=== PATIENT | female | born 1980 | race Two or more races ===

== ENCOUNTER 2016-02-15 14:15 | Emergency (ER) | payer OTHER ==
[2016-02-15 14:37] VITALS: TEMP 98; BMI 20.2
[2016-02-15 16:58] LABS: URINE APPEARANCE CLEAR; URINE BILIRUBIN NEGATIVE (NEGATIVE); URINE BLOOD NEGATIVE (NEGATIVE); URINE COLOR COLORLESS; URINE GLUCOSE (UA) NEGATIVE (NEGATIVE); URINE KETONE TRACE (NEGATIVE); URINE LEUK ESTERASE NEGATIVE (NEGATIVE); URINE NITRITE NEGATIVE (NEGATIVE); URINE PROTEIN NEGATIVE (NEGATIVE); URINE UROBILINOGEN NEGATIVE E.U./dl (0.2-1.0)
[2016-02-15] MEDS ORDERED: ONDANSETRON *ODT* 4 MG TABLET SL ONE (16:58)
--- NOTE | 2016-02-15 16:58 | PDOC ---
History of Present Illness - General History Source: Patient Exam Limitations: No Limitations - History of Present Illness Initial Comments: CHIEF COMPLAINT: 35 y/o afebrile female with no significant PMH c/o nausea and lightheaded since this morning. HISTORY OF PRESENT ILLNESS: She also admits to a sore throat. The patient denies fever, chills, body aches, cough, runny nose, v/d, CP, SOB, abd pain, back pain, hematuria, dysuria. She called her PCP but there were no appointments available. Vital signs on arrival are notable for pulse of 103. REVIEW OF SYSTEMS: GENERAL/CONSTITUTIONAL: No fever/chills. No weakness. No weight change. HEAD, EYES, EARS, NOSE AND THROAT: No change in vision. No ear pain or discharge. +sore throat. CARDIOVASCULAR: No chest pain or shortness of breath. RESPIRATORY: No cough, wheezing, or hemoptysis. GASTROINTESTINAL: +nausea. No vomiting, diarrhea, constipation, abd pain. GENITOURINARY: No dysuria, frequency, or change in urination. MUSCULOSKELETAL: No joint or muscle swelling or pain. No neck or back pain. SKIN: No rash or easy bruising. NEUROLOGIC: +lightheaded. No headache, vertigo, loss of consciousness, or loss of sensation. PSYCHIATRIC: No depression or anxiety. ENDOCRINE: No increased thirst. No abnormal weight change. HEMATOLOGIC/LYMPHATIC: No anemia, easy bleeding, or history of blood clots. ALLERGIC/IMMUNOLOGIC: No hives or skin allergy. No latex allergy. PHYSICAL EXAM: GENERAL: The patient is awake, alert, and fully oriented, in no acute distress. SHe is well appearing, ambulatory, in NAD or obvious discomfort. HEAD: Normal with no signs of trauma. ENT: Pupils equal, round and reactive to light, extraocular movements intact, sclera anicteric, conjunctiva clear. Neck supple. Minimal erythema to b/l tonsils and posterior pharynx. No tonsilar edema or exudate. LUNGS: Clear to auscultation bilaterally. Normal excursion. No respiratory distress or use of accessory muscles. CV: RRR, S1/S2, no MRG. Cap refill < 2 sec. ABDOMEN: Soft, non-distended, non-tender even to deep palpation, no hepatomegaly or splenomegaly, no masses. EXTREMITIES: Normal range of motion, no edema. NEUROLOGICAL: Normal speech, normal gait. CN II-XII grossly intact. PSYCH: Normal mood, normal affect. SKIN: Warm, dry, normal turgor, no rashes or lesions noted. <Jovita Roper - Last Filed: 02/15/16 18:36> <Julita Johnson - Last Filed: 02/22/16 07:39> - General Chief Complaint: Lightheaded Stated Complaint: HIGH BP, Time Seen by Provider: 02/15/16 16:36 Past History - Past Medical History Anemia: No Kidney Stones: No Liver Disease: No Psychiatric Problems: No Suicide Attempt (Hx): No - Surgical History Abdominal Surgery: Yes - Psycho/Social/Smoking Cessation Hx Anxiety: No Suicidal Ideation: No Smoking Status: No Smoking History: Never smoked Have you smoked in the past 12 months: No Number of Cigarettes Smoked Daily: 0 Information on smoking cessation initiated: No Hx Alcohol Use: No Drug/Substance Use Hx: No Substance Use Type: None Hx Substance Use Treatment: No <Jovita Roper - Last Filed: 02/15/16 18:36> <Julita Johnson - Last Filed: 02/22/16 07:39> - Past Medical History Allergies/Adverse Reactions: Allergies Allergy/AdvReac Type Severity Reaction Status Date / Time No Known Allergies Allergy Verified 02/15/16 14:37 Home Medications: Ambulatory Orders NK [No Known Home Medication] 02/15/16 *Physical Exam - Vital Signs Last Vital Signs Temp Pulse Resp BP Pulse Ox 98 F 103 H 18 125/74 100 02/15/16 14:34 02/15/16 14:34 02/15/16 14:34 02/15/16 14:34 02/15/16 14:34 <Jovita Roper - Last Filed: 02/15/16 18:36> - Vital Signs Last Vital Signs Temp Pulse Resp BP Pulse Ox 98 F 84 18 112/80 99 02/15/16 14:34 02/15/16 18:30 02/15/16 18:30 02/15/16 18:30 02/15/16 18:30 <Julita Johnson - Last Filed: 02/22/16 07:39> ED Treatment Course - ADDITIONAL ORDERS Additional order review: 02/15/16 17:00 Throat Culture - Final Throat NO BETA HEMOLYTIC STREPTOCOCCI ISOLATED Group A Strep Rapid Antigen - Final - Medications Given in the ED: ED Medications Discontinued Medications Generic Name Dose Route Start Last Admin Trade Name Heidi PRN Reason Stop Dose Admin Ketorolac Tromethamine 60 mg 02/15/16 18:52 02/15/16 18:55 Toradol Injection - IM 02/15/16 18:53 60 mg ONCE ONE Administration Ondansetron HCl 4 mg 02/15/16 16:58 02/15/16 17:15 Zofran Odt - SL 02/15/16 16:59 4 mg ONCE ONE Administration <Julita Johnson - Last Filed: 02/22/16 07:39> Medical Decision Making - Medical Decision Making A/P: 35 y/o afebrile female with nausea, lightheaded and sore throat today. Plan is as follows: 1. UA/hcg 2. SL zofran 3. Rapid strep Rapid strep - negative The patient states she feels better and was able to eat in the ER. Her HR is now 84bpm Will give IM toradol for pain Suggested she get plenty of rest, eat bland foods and drink plenty of fluids until she feels better. Suggested she f/u with her PCP within 1 week and return to the ER with any worsening or concerning symptoms. The patient verbalizes understanding of all instructions, has no further questions and is awaiting discharge. <Jovita Roper - Last Filed: 02/15/16 18:36> *DC/Admit/Observation/Transfer <Jovita Roper - Last Filed: 02/15/16 18:36> - Attestations Physician Attestion: I reviewed the case with the mid-level practitioner and agree with the mid- level practitioner's assessment, diagnosis and disposition. <Julita Johnson - Last Filed: 02/22/16 07:39> Diagnosis at time of Disposition: Nausea, Common cold - Discharge Dispostion Disposition: HOME Condition at time of disposition: Improved - Referrals Referrals: Angeline Chamorro MD [Primary Care Provider] - Call tomorrow - Patient Instructions Printed Discharge Instructions: DI for Nausea -- Adult, DI for Common Cold Additional Instructions: Discharge Instructions: -Get plenty of rest and drink lots of fluids -IF you start vomiting, do not eat or drink anything for 12 hours and then slowly reintroduce liquids -Follow up with your doctor within 1 week -Return to the ER with any worsening or concerning symptoms. Print Language: JAPANESE
[2016-02-15] MEDS ORDERED: ONDANSETRON *ODT* 4 MG TABLET ONE (17:05)
[2016-02-15] MEDS ORDERED: KETOROLAC TROMETHAMINE 60 MG/2 ML VIAL ONE (18:52)
[2016-02-15] MEDS ORDERED: KETOROLAC TROMETHAMINE 60 MG/2 ML VIAL IM ONE (18:52)
[2016-02-15 19:17] VITALS: BP 112/80; PULSE 84
== END 2016-02-15 18:56 | disposition home or self-care (01) ==
LOC: JER 14:15
DX: J00 Acute nasopharyngitis [common cold] (principal)
CPT/HCPCS: 81003; 84703; 87070; 87430; 99282-25

== ENCOUNTER 2016-07-26 16:54 | Emergency (ER) | payer OTHER ==
--- NOTE | 2016-07-26 16:59 | PDOC ---
Rapid Medical Evaluation Time Seen by Provider: 07/26/16 16:56 Medical Evaluation: Allergies Allergy/AdvReac Type Severity Reaction Status Date / Time No Known Allergies Allergy Verified 07/26/16 16:56 07/26/16 16:56 I have performed a brief in-person evaluation of this patient. The patient presents with a chief complaint of:abd pain Pertinent physical exam findings: L/S CTAB The patient will proceed to the ED for further evaluation. 35 yo F c/o lower abd pain, miild sore throat with bodyaches, lea, nausea, diarrhea x3d. 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
[2016-07-26 17:06] VITALS: TEMP 98.1; BMI 20.5
[2016-07-26 17:23] LABS: URINE APPEARANCE CLEAR; URINE BILIRUBIN NEGATIVE (NEGATIVE); URINE BLOOD NEGATIVE (NEGATIVE); URINE COLOR STRAW; URINE GLUCOSE (UA) NEGATIVE (NEGATIVE); URINE KETONE NEGATIVE (NEGATIVE); URINE LEUK ESTERASE NEGATIVE (NEGATIVE); URINE NITRITE NEGATIVE (NEGATIVE); URINE PROTEIN NEGATIVE (NEGATIVE); URINE UROBILINOGEN NEGATIVE E.U./dl (0.2-1.0)
[2016-07-26] MEDS ORDERED: ONDANSETRON 4 MG/2 ML VIAL IVPB ONE (18:11)
[2016-07-26] MEDS ORDERED: SODIUM CHLORIDE 1,000 ML IV STA (18:11)
[2016-07-26] MEDS ORDERED: KETOROLAC TROMETHAMINE 30 MG/1 ML VIAL IVPUSH ONE (18:12)
[2016-07-26] MEDS ORDERED: KETOROLAC TROMETHAMINE 30 MG/1 ML VIAL ONE (19:01)
[2016-07-26] MEDS ORDERED: ONDANSETRON 4 MG/2 ML VIAL ONE ×2 (19:01→19:02)
[2016-07-26 19:25] LABS: BASOPHIL 0.6 % (0-2.0); EOSINOPHIL 0.5 % (0-4.5); MCH 29.1 pg (25.7-33.7); MCHC 33.6 g/dl (32.0-36.0); MEAN CELL VOLUME 86.4 fl (80-96); MEAN PLT VOLUME 8.8 fl (7.5-11.1); NEUTROPHILS 62.3 % (42.8-82.8); PLATELET COUNT 214 K/MM3 (134-434); RDW 11.9 % (11.6-15.6); WHITE BLOOD COUNT 3.6 K/mm3 (4.0-10.0)
--- NOTE | 2016-07-26 19:33 | PDOC ---
History of Present Illness - History of Present Illness Initial Comments: 07/26/16 20:03 The patient is a 35 year old female, with no significant past medical history, who presents to the emergency department with subjective fever, chills, lower abdominal pain, mild sore throat, generalized body aches, nausea, and diarrhea for 3 days. The patient states she woke up with a subjective fever today and reports taking a tylenol. She reports her abdominal pain is localized to her bilateral lower quadrants without radiation. She reports a couple episodes of diarrhea, which she describes at loose and foul smelling. The patient also reports a mild sore throat and waves of nausea, but denies vomiting. 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 She denies chest pain, shortness of breath, headache and dizziness. She denies fever, chills, vomit, diarrhea and constipation. She denies dysuria, frequency, urgency and hematuria. Allergies: NKDA Social history: Denies toxic habits <Lawanda Dugan - Last Filed: 07/26/16 20:03> <Glendy Zamorano - Last Filed: 07/26/16 23:33> - General Chief Complaint: Pain, Acute Stated Complaint: COLD SYMPTOMS Time Seen by Provider: 07/26/16 16:56 Past History <Lawanda Dugan - Last Filed: 07/26/16 20:03> - Past Medical History Anemia: No Kidney Stones: No Liver Disease: No Psychiatric Problems: No Suicide Attempt (Hx): No Other medical history: NONE - Surgical History Abdominal Surgery: Yes - Psycho/Social/Smoking Cessation Hx Anxiety: No Suicidal Ideation: No Smoking Status: No Smoking History: Never smoked Have you smoked in the past 12 months: No Number of Cigarettes Smoked Daily: 0 Information on smoking cessation initiated: No Hx Alcohol Use: No Drug/Substance Use Hx: No Substance Use Type: None Hx Substance Use Treatment: No <Glendy Zamorano - Last Filed: 07/26/16 23:33> - Past Medical History Allergies/Adverse Reactions: Allergies Allergy/AdvReac Type Severity Reaction Status Date / Time No Known Allergies Allergy Verified 07/26/16 16:56 Home Medications: Ambulatory Orders NK [No Known Home Medication] 02/15/16 Review of Systems - Review of Systems Able to Perform ROS?: Yes Comments:: 07/26/16 20:03 CONSTITUTIONAL: (+) subjective fever, chills, Absent: diaphoresis, generalized weakness, malaise , loss of appetite HEENT: Absent: rhinorrhea, nasal congestion, throat pain, throat swelling, difficulty swallowing, mouth swelling, ear pain, eye pain, visual Changes CARDIOVASCULAR: Absent: chest pain, syncope, palpitations, irregular heart rate, lightheadedness , peripheral edema RESPIRATORY: Absent: cough, shortness of breath, dyspnea with exertion, orthopnea, wheezing, stridor, hemoptysis GASTROINTESTINAL: (+) abdominal pain, nausea, diarrhea, Absent: abdominal distension, vomiting, constipation, melena, hematochezia GENITOURINARY: Absent: dysuria, frequency, urgency, hesitancy, hematuria, flank pain, genital pain MUSCULOSKELETAL: Absent: myalgia, arthralgia, joint swelling SKIN: Absent: rash, itching, pallor HEMATOLOGIC/IMMUNOLOGIC: Absent: easy bleeding, easy bruising, lymphadenopathy, frequent infections ENDOCRINE: Absent: unexplained weight gain, unexplained weight loss, heat intolerance, cold intolerance NEUROLOGIC: Absent: headache, focal weakness or paresthesias, dizziness, unsteady gait, seizure, mental status changes, bladder or bowel incontinence PSYCHIATRIC: Absent: anxiety, depression, suicidal or homicidal ideation, hallucinations. <Lawanda Dugan - Last Filed: 07/26/16 20:03> *Physical Exam - Vital Signs Last Vital Signs Temp Pulse Resp BP Pulse Ox 98.1 F 91 H 18 100/62 100 07/26/16 16:57 07/26/16 16:57 07/26/16 16:57 07/26/16 16:57 07/26/16 16:57 - Physical Exam Comments: 07/26/16 20:04 GENERAL: Well developed, well nourished. Awake and alert. No acute distress. HEENT: Normocephalic, atraumatic. PERRLA, EOMI. No conjunctival pallor. Sclera are non- icteric. Moist mucous membranes. Oropharynx is clear. NECK: Supple. Full ROM. No JVD. Carotid pulses 2+ and symmetric, without bruits. No thyromegaly. No lymphadenopathy. CARDIOVASCULAR: Regular rate and rhythm. No murmurs, rubs, or gallops. Distal pulses are 2+ and symmetric. PULMONARY: No evidence of respiratory distress. Lungs clear to auscultation bilaterally. No wheezing, rales or rhonchi. ABDOMINAL: (+) mild discomfort to bilateral lower quadrants. Soft. Non-distended. No rebound or guarding. No organomegaly. Normoactive bowel sounds. MUSCULOSKELETAL Normal range of motion at all joints. No bony deformities or tenderness. No CVA tenderness. EXTREMITIES: No cyanosis. No clubbing. No edema. No calf tenderness. SKIN: Warm and dry. Normal capillary refill. No rashes. No jaundice. NEUROLOGICAL: Alert, awake, appropriate. Cranial nerves 2-12 intact. Normoreflexic in the upper and lower extremities. Normal speech. Toes are down-going bilaterally. Gait is normal without ataxia. PSYCHIATRIC: Cooperative. Good eye contact. Appropriate mood and affect. <Lawanda Dugan - Last Filed: 07/26/16 20:03> - Vital Signs Last Vital Signs Temp Pulse Resp BP Pulse Ox 98.1 F 91 H 18 100/62 100 07/26/16 16:57 07/26/16 16:57 07/26/16 16:57 07/26/16 16:57 07/26/16 16:57 <Glendy Zamorano - Last Filed: 07/26/16 23:33> ED Treatment Course - LABORATORY CBC & Chemistry Diagram: 07/26/16 18:58 07/26/16 18:58 - ADDITIONAL ORDERS Additional order review: Laboratory Results 07/26/16 07/26/16 07/26/16 18:58 17:00 17:00 Sodium Cancelled Potassium Cancelled Chloride Cancelled Carbon Dioxide Cancelled Anion Gap Cancelled BUN Cancelled Creatinine Cancelled Creat Clearance w eGFR Cancelled Random Glucose Cancelled Calcium Cancelled Total Bilirubin Cancelled AST Cancelled ALT Cancelled Alkaline Phosphatase Cancelled Total Protein Cancelled Albumin Cancelled Lipase Cancelled Urine Color Straw Urine Appearance Clear Urine pH 6.0 Ur Specific [place] 1.010 Urine Protein Negative Urine Glucose (UA) Negative Urine Ketones Negative Urine Blood Negative Urine Nitrite Negative Urine Bilirubin Negative Urine Urobilinogen Negative Ur Leukocyte Esterase Negative Urine HCG, Qual Negative 07/26/16 17:00 Group A Strep Rapid Antigen - Final Throat 07/26/16 18:58 RBC 4.20 MCV 86.4 MCHC 33.6 RDW 11.9 MPV 8.8 Neutrophils % 62.3 D Lymphocytes % 26.9 D Monocytes % 9.7 D Eosinophils % 0.5 Basophils % 0.6 - Medications Given in the ED: ED Medications Discontinued Medications Generic Name Dose Route Start Last Admin Trade Name Heidi PRN Reason Stop Dose Admin Sodium Chloride 1,000 mls @ 1,000 mls/hr 07/26/16 18:11 07/26/16 19:22 Normal Saline - IV 07/26/16 19:10 1,000 mls/hr ASDIR STA Administration Ketorolac Tromethamine 30 mg 07/26/16 18:12 07/26/16 19:23 Toradol Injection - IVPUSH 07/26/16 18:13 30 mg ONCE ONE Administration Ondansetron HCl 4 mg 07/26/16 18:11 07/26/16 19:23 Zofran Injection IVPB 07/26/16 18:12 4 mg ONCE ONE Administration <Lawanda Dugan - Last Filed: 07/26/16 20:03> - LABORATORY CBC & Chemistry Diagram: 07/26/16 18:58 07/26/16 20:00 - ADDITIONAL ORDERS Additional order review: Laboratory Results 07/26/16 07/26/16 07/26/16 18:58 17:00 17:00 Sodium Cancelled Potassium Cancelled Chloride Cancelled Carbon Dioxide Cancelled Anion Gap Cancelled BUN Cancelled Creatinine Cancelled Creat Clearance w eGFR Cancelled Random Glucose Cancelled Calcium Cancelled Total Bilirubin Cancelled AST Cancelled ALT Cancelled Alkaline Phosphatase Cancelled Total Protein Cancelled Albumin Cancelled Lipase Cancelled Urine Color Straw Urine Appearance Clear Urine pH 6.0 Ur Specific [place] 1.010 Urine Protein Negative Urine Glucose (UA) Negative Urine Ketones Negative Urine Blood Negative Urine Nitrite Negative Urine Bilirubin Negative Urine Urobilinogen Negative Ur Leukocyte Esterase Negative Urine HCG, Qual Negative 07/26/16 17:00 Group A Strep Rapid Antigen - Final Throat - Medications Given in the ED: ED Medications Discontinued Medications Generic Name Dose Route Start Last Admin Trade Name Heidi PRN Reason Stop Dose Admin Sodium Chloride 1,000 mls @ 1,000 mls/hr 07/26/16 18:11 07/26/16 19:22 Normal Saline - IV 07/26/16 19:10 1,000 mls/hr ASDIR STA Administration Ketorolac Tromethamine 30 mg 07/26/16 18:12 07/26/16 19:23 Toradol Injection - IVPUSH 07/26/16 18:13 30 mg ONCE ONE Administration Ondansetron HCl 4 mg 07/26/16 18:11 07/26/16 19:23 Zofran Injection IVPB 07/26/16 18:12 4 mg ONCE ONE Administration <Glendy Zamorano - Last Filed: 07/26/16 23:33> Medical Decision Making - Medical Decision Making 07/26/16 23:31 35-year-old female has been experiencing fever, chills, body ache, headache, nausea -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 Past medical history noncontributory Patient received IV fluids, pain meds Negative test, no evidence of UTI, CBC and chemistries within normal limits Impression viral syndrome <Glendy Zamorano - Last Filed: 07/26/16 23:33> *DC/Admit/Observation/Transfer - Attestations Scribe Attestion: 07/26/16 20:04 Documentation prepared by Lawanda Dugan, acting as medical illustrator for Glendy Zamorano MD <Lawanda Dugan - Last Filed: 07/26/16 20:03> <Glendy aZmorano - Last Filed: 07/26/16 23:33> Diagnosis at time of Disposition: Influenza-like illness, Hypokalemia - Discharge Dispostion Disposition: HOME Condition at time of disposition: Stable - Referrals Referrals: Angeline Chamorro MD [Primary Care Provider] - - Patient Instructions Printed Discharge Instructions: DI for Nausea -- Adult, DI for Viral Syndrome Additional Instructions: -please take tylenol or motrin for fever and body aches -stay hydrated -followup with your regular physician -Return for any worsening symptoms
[2016-07-26 20:52] LABS: ANION GAP 6 (8-16); BILIRUBIN,TOTAL 0.2 mg/dL (0.2-1.0); CALCIUM 7.6 mg/dL (8.5-10.1); CO2 27 mmol/L (21-32); CREATININE 0.4 mg/dL (0.55-1.02); GLUCOSE,RANDOM 89 mg/dL (74-106); SGOT/AST 17 U/L (15-37); SGPT/ALT 21 U/L (12-78); TOT PROT 5.7 g/dl (6.4-8.2)
[2016-07-26 20:53] LABS: ALK PHOS 62 U/L (45-117)
[2016-07-26] MEDS ORDERED: POTASSIUM CHLORIDE TABS 20 MEQ TABLET.ER (FP) PO ONE ×2 (21:15→21:39)
[2016-07-26 21:49] VITALS: BP 118/68; PULSE 85
== END 2016-07-26 21:50 | disposition home or self-care (01) ==
LOC: JER 16:54
PROC: 3E0333Z Introduction of Anti-inflammatory into Peripheral Vein, Percutaneous Approach (ICD-10-PCS; principal; 2016-07-26)
PROC: 3E033GC Introduction of Other Therapeutic Substance into Peripheral Vein, Percutaneous Approach (ICD-10-PCS; 2016-07-26)
PROC: 3E0337Z Introduction of Electrolytic and Water Balance Substance into Peripheral Vein, Percutaneous Approach (ICD-10-PCS; 2016-07-26)
DX: J11.1 Influenza due to unidentified influenza virus with other respiratory manifestations (principal); E87.6 Hypokalemia
CPT/HCPCS: 36415; 80053; 81003; 84703; 85025; 87070; 87430; 96361; 96374; 96375; 99283-25

== ENCOUNTER 2017-02-27 18:38 | Emergency (ER) | payer OTHER ==
[2017-02-27 19:43] VITALS: BP 117/68; PULSE 68; TEMP 98.3; BMI 19.3
[2017-02-27] MEDS ORDERED: KETOROLAC TROMETHAMINE 60 MG/2 ML VIAL IM ONE (20:20)
[2017-02-27] MEDS ORDERED: CYCLOBENZAPRINE HCL 10 MG TABLET (FP) PO ONE (20:20)
--- NOTE | 2017-02-27 20:20 | PDOC ---
History of Present Illness - General Chief Complaint: Pain, Acute Stated Complaint: SHOULDER PAIN Time Seen by Provider: 02/27/17 20:00 Past History - Past Medical History Allergies/Adverse Reactions: Allergies Allergy/AdvReac Type Severity Reaction Status Date / Time No Known Allergies Allergy Verified 07/26/16 16:56 Home Medications: Ambulatory Orders Cyclobenzaprine HCl [Flexeril -] 10 mg PO HS #10 tablet 02/27/17 Ibuprofen 800 mg PO TID #30 tablet 02/27/17 Anemia: No COPD: No Kidney Stones: No Liver Disease: No Psychiatric Problems: No - Surgical History Abdominal Surgery: Yes - Suicide/Smoking/Psychosocial Hx Smoking Status: No Smoking History: Never smoked Have you smoked in the past 12 months: No Number of Cigarettes Smoked Daily: 0 Information on smoking cessation initiated: No Hx Alcohol Use: No Drug/Substance Use Hx: No Substance Use Type: None Hx Substance Use Treatment: No *Physical Exam - Vital Signs Last Vital Signs Temp Pulse Resp BP Pulse Ox 98.3 F 68 17 117/68 100 02/27/17 19:40 02/27/17 19:40 02/27/17 19:40 02/27/17 19:40 02/27/17 19:40 *DC/Admit/Observation/Transfer Diagnosis at time of Disposition: Neck pain, Cervical radicular pain - Discharge Dispostion Disposition: HOME Condition at time of disposition: Good Admit: No - Referrals Referrals: Angeline Chamorro MD [Primary Care Provider] - - Patient Instructions Printed Discharge Instructions: DI for Neck Pain Additional Instructions: You have neck and shoulder pain. Please take ibuprofen 800 mg 3 times a day for one week to help with her symptoms. Please take Flexeril 10 mg at night. Do not drive after taking this medication. You may use heat to the affected area to help with pain. Please follow-up with your primary care doctor. Return to the emergency department if you have worsening pain, numbness and tingling comely entire arm, or any changes in your symptoms. Tienes dolor en el amari y los hombros. [place] ibuprofeno 800 mg 3 veces al da aldo ward semana para ayudarla con jayson sntomas. Por favor, tome Flexeril 10 mg por la noche. No conduzca despus de betty lissa medicamento. Puede usar calor en el rachael afectada para ayudar con el dolor. Por favor reyes un seguimiento con kathleen mdico de atencin primaria. Regrese al departamento de emergencias si tiene un empeoramiento del dolor, entumecimiento y hormigueo en todo el brazo, o cualquier cambio en jayson sntomas. Print Language: LAO - Post Discharge Activity Forms/Work/School Notes: Back to Work
[2017-02-27] MEDS ORDERED: KETOROLAC TROMETHAMINE 60 MG/2 ML VIAL ONE (20:25)
[2017-02-27] MEDS ORDERED: CYCLOBENZAPRINE HCL 10 MG TABLET (FP) ONE (20:25)
== END 2017-02-27 20:40 | disposition home or self-care (01) ==
LOC: JER 18:38
PROC: 3E0233Z Introduction of Anti-inflammatory into Muscle, Percutaneous Approach (ICD-10-PCS; principal; 2017-02-27)
DX: M54.12 Radiculopathy, cervical region (principal)
CPT/HCPCS: 96372; 99281-25

== ENCOUNTER 2017-03-13 18:30 | Emergency (ER) | payer OTHER ==
[2017-03-13 18:47] VITALS: BP 102/80; PULSE 102; TEMP 98.4; BMI 17.2
--- NOTE | 2017-03-13 18:56 | PDOC ---
Rapid Medical Evaluation Time Seen by Provider: 03/13/17 18:43 Medical Evaluation: Allergies Allergy/AdvReac Type Severity Reaction Status Date / Time No Known Allergies Allergy Verified 07/26/16 16:56 03/13/17 18:44 The patient presents with a chief complaint of: Body aches, nausea, sore throat , headache since Monday, denies fevers I have performed a brief in-person evaluation of this patient; Pertinent physical exam findings: ambulatory, in no respiratory distress. Afebrile, posterior erythema to pharynx I have ordered the following: flu, rapid strep The patient will proceed to the ED for further evaluation.
--- NOTE | 2017-03-13 19:51 | PDOC ---
History of Present Illness - General Chief Complaint: Cold Symptoms Stated Complaint: HEADACHE Time Seen by Provider: 03/13/17 18:43 History Source: Patient Exam Limitations: No Limitations - History of Present Illness Initial Comments: 03/13/17 19:48 36-year-old female with no medical history presents to the emergency department complaining of subjective fever, chills, general malaise, frontal headache, sore throat 2 days without dizziness, lightheadedness, rhinorrhea, nasal congestion, earaches, neck stiffness/pain, back pains, chest pain, shortness of breath, abdominal pains, flank pains, urinary symptoms. Timing/Duration: reports: other (x2d) Past History - Past Medical History Allergies/Adverse Reactions: Allergies Allergy/AdvReac Type Severity Reaction Status Date / Time No Known Allergies Allergy Verified 03/13/17 18:44 Home Medications: Ambulatory Orders NK [No Known Home Medication] 03/13/17 Anemia: No COPD: No Kidney Stones: No Liver Disease: No Psychiatric Problems: No - Surgical History Abdominal Surgery: Yes - Suicide/Smoking/Psychosocial Hx Smoking Status: No Smoking History: Never smoked Have you smoked in the past 12 months: No Number of Cigarettes Smoked Daily: 0 Information on smoking cessation initiated: No Hx Alcohol Use: No Drug/Substance Use Hx: No Substance Use Type: None Hx Substance Use Treatment: No Review of Systems - Review of Systems Able to Perform ROS?: Yes Comments:: 03/13/17 19:50 CONSTITUTIONAL: +subjective fever/chills, gerneralized malaise Absent: diaphoresis, malaise, loss of appetite HEENT: +throat pain Absent: rhinorrhea, nasal congestion,throat swelling, difficulty swallowing, mouth swelling, ear pain, eye pain, visual Changes CARDIOVASCULAR: Absent: chest pain, loss of consciousness, palpitations, irregular heart rate, peripheral edema RESPIRATORY: Absent: cough, shortness of breath, dyspnea with exertion, orthopnea, wheezing, stridor, hemoptysis GASTROINTESTINAL: Absent: abdominal pain, abdominal distension, nausea, vomiting, diarrhea, constipation, melena, hematochezia GENITOURINARY: Absent: dysuria, frequency, urgency, hesitancy, hematuria, flank pain, genital pain MUSCULOSKELETAL: Absent: myalgia, arthralgia, joint swelling SKIN: Absent: rash, itching, pallor Is the patient limited [place] proficient: No *Physical Exam - Vital Signs Last Vital Signs Temp Pulse Resp BP Pulse Ox 98.4 F 102 H 18 102/80 100 03/13/17 18:44 03/13/17 18:44 03/13/17 18:44 03/13/17 18:44 03/13/17 18:44 - Physical Exam Comments: 03/13/17 19:50 GENERAL: Well developed, well nourished. Awake and alert. No acute distress. HEENT: +posterior erythema to pharynx Normocephalic, atraumatic. PERRLA, EOMI. No conjunctival pallor. Sclera are non- icteric. Moist mucous membranes. NECK: Supple. Full ROM. No JVD. Carotid pulses 2+ and symmetric, without bruits. No thyromegaly. No lymphadenopathy. CARDIOVASCULAR: Regular rate and rhythm. No murmurs, rubs, or gallops. Distal pulses are 2+ and symmetric. PULMONARY: No evidence of respiratory distress. Lungs clear to auscultation bilaterally. No wheezing, rales or rhonchi. ABDOMINAL: Soft. Non-tender. Non-distended. No rebound or guarding. No organomegaly. Normoactive bowel sounds. MUSCULOSKELETAL Normal range of motion at all joints. No bony deformities or tenderness. No CVA tenderness. EXTREMITIES: No cyanosis. No clubbing. No edema. No calf tenderness. SKIN: Warm and dry. Normal capillary refill. No rashes. No jaundice. NEUROLOGICAL: Alert, awake, appropriate. Cranial nerves 2-12 intact. No deficits to light touch and temperature in face, upper extremities and lower extremities. No motor deficits in the in face, upper extremities and lower extremities. Normoreflexic in the upper and lower extremities. Normal speech. Toes are down- going bilaterally. Gait is normal without ataxia. *DC/Admit/Observation/Transfer Diagnosis at time of Disposition: Viral pharyngitis - Discharge Dispostion Disposition: HOME Condition at time of disposition: Stable Admit: No - Referrals Referrals: Angeline Chamorro MD [Primary Care Provider] - - Patient Instructions Printed Discharge Instructions: DI for Viral Pharyngitis Additional Instructions: Increase fluids Take tylenol/alternating with motrin as needed for pain Follow up with your physician within 48 horus Return to the ER for severe/persistent/worsening symptoms - Post Discharge Activity
== END 2017-03-13 22:15 | disposition home or self-care (01) ==
LOC: JERFT 18:30
DX: J02.9 Acute pharyngitis, unspecified (principal); B97.89 Other viral agents as the cause of diseases classified elsewhere
CPT/HCPCS: 71046-TC-FY; 84703; 87070; 87430; 87804; 99281-25

== ENCOUNTER 2021-10-11 02:13 | Emergency (ER) | payer OTHER ==
[2021-10-11 02:25] VITALS: BMI 22.3
[2021-10-11] MEDS ORDERED: ACETAMINOPHEN 325 MG TABLET (FP) PO ONE (05:08)
[2021-10-11] MEDS ORDERED: ONDANSETRON 4 MG/2 ML VIAL IVPUSH ONE (05:08)
[2021-10-11] MEDS ORDERED: ONDANSETRON 4 MG TABLET PO ONE (05:10)
[2021-10-11] MEDS ORDERED: ACETAMINOPHEN 325 MG TABLET (FP) ONE (05:21)
[2021-10-11] MEDS ORDERED: ONDANSETRON *ODT* 4 MG TABLET ONE (05:21)
[2021-10-11 06:41] VITALS: RESP 16
[2021-10-11 06:56] LABS: BASO % 0.3 % (0-2.0); EOS % 0.2 % (0-4.5); HEMOGLOBIN 12.5 GM/dL (10.7-15.3); LYMPH % 15.9 % (8-40); MCH 25.4 pg (25.7-33.7); MEAN CELL VOLUME 79.4 fl (80-96); MEAN PLT VOLUME 8.7 fl (7.5-11.1); MONO % 3.2 % (3.8-10.2); NEUT % 80.4 % (42.8-82.8); PLATELET COUNT 279 10^3/uL (134-434); RBC 4.91 M/mm3 (3.60-5.2); RDW 17.1 % (11.6-15.6); WHITE BLOOD COUNT 7.9 K/mm3 (4.0-10.0)
[2021-10-11 07:03] VITALS: BP 102/71; PULSE 83; TEMP 97.5
[2021-10-11 07:14] LABS: CHLORIDE 108 mmol/L (98-107); SODIUM 142 mmol/L (136-145)
[2021-10-11 07:16] LABS: ANION GAP 7 MMOL/L (8-16); BLOOD UREA NITROGEN 8.9 mg/dL (7-18); CALCIUM 8.9 mg/dL (8.5-10.1); CO2 26 mmol/L (21-32)
[2021-10-11 07:19] LABS: CREATININE 0.5 mg/dL (0.55-1.3)
[2021-10-11 07:20] LABS: SGOT/AST 25 U/L (15-37); SGPT/ALT 21 U/L (13-61)
[2021-10-11 07:21] LABS: BILIRUBIN,TOTAL 0.4 mg/dL (0.2-1); TOT PROT 7.5 g/dl (6.4-8.2)
[2021-10-11 07:22] LABS: ALK PHOS 74 U/L (45-117)
[2021-10-11 07:33] LABS: GLUCOSE,RANDOM 98 mg/dL (74-106)
[2021-10-11 10:52] LABS: EPI CELLS >36 /uL (0-25.1); HYALINE CASTS 0 /uL (0-3.1); URINE APPEARANCE CLEAR; URINE BACTERIA 155 /uL (0-1359); URINE BILIRUBIN NEGATIVE (NEGATIVE); URINE COLOR YELLOW; URINE GLUCOSE (UA) NEGATIVE (NEGATIVE); URINE KETONE NEGATIVE (NEGATIVE); URINE LEUK ESTERASE 1+ (NEGATIVE); URINE NITRITE NEGATIVE (NEGATIVE); URINE PROTEIN NEGATIVE (NEGATIVE); URINE RBC 49 /uL (0-23.9); URINE UROBILINOGEN 0.2 mg/dL (0.2-1.0); URINE WBC 30 /uL (0-25.8)
== END 2021-10-11 11:38 | disposition home or self-care (01) ==
LOC: JER 02:13
DX: R10.32 Left lower quadrant pain (principal); R07.9 Chest pain, unspecified
CPT/HCPCS: 36415; 71046-TC-FY; 74177-TC; 80053; 81003; 84484; 84702; 85025; 87086; 87186; 93005; 93010; 99285-25; Q9967

== ENCOUNTER 2022-04-16 16:49 | Emergency (ER) | payer OTHER ==
[2022-04-16 17:03] VITALS: BP 107/62; PULSE 85; RESP 17; TEMP 98.1; BMI 22.6
[2022-04-16] MEDS ORDERED: SODIUM CHLORIDE 1,000 ML IV STA (17:04)
[2022-04-16 18:11] LABS: HCG,QUALITATIVE URINE Positive
[2022-04-16 18:12] LABS: BASO % 0.3 % (0-2.0); EOS % 0.8 % (0-4.5); HEMATOCRIT 40.1 % (32.4-45.2); HEMOGLOBIN 13.6 GM/dL (10.7-15.3); LYMPH % 29.2 % (8-40); MCH 28.3 pg (25.7-33.7); MCHC 33.8 g/dl (32.0-36.0); MEAN CELL VOLUME 83.8 fl (80-96); MEAN PLT VOLUME 8.2 fl (7.5-11.1); MONO % 6.6 % (3.8-10.2); NEUT % 63.1 % (42.8-82.8); PLATELET COUNT 246 10^3/uL (134-434); RBC 4.79 M/mm3 (3.60-5.2); RDW 13.8 % (11.6-15.6); WHITE BLOOD COUNT 5.8 K/mm3 (4.0-10.0)
[2022-04-16 18:15] LABS: EPI CELLS >36 /uL (0-25.1); HYALINE CASTS 3 /uL (0-3.1); URINE APPEARANCE CLEAR; URINE BACTERIA 588 /uL (0-1359); URINE BILIRUBIN NEGATIVE (NEGATIVE); URINE COLOR YELLOW; URINE GLUCOSE (UA) NEGATIVE (NEGATIVE); URINE KETONE 1+ (NEGATIVE); URINE LEUK ESTERASE NEGATIVE (NEGATIVE); URINE NITRITE NEGATIVE (NEGATIVE); URINE PROTEIN NEGATIVE (NEGATIVE); URINE RBC 13 /uL (0-23.9); URINE WBC 18 /uL (0-25.8)
[2022-04-16 18:17] LABS: INR 1.14 (0.83-1.09); PROTHROMBIN TIME (PATIENT) 13.2 SEC (9.7-13.0)
[2022-04-16 18:20] LABS: ACTIVATED PTT 32.4 SECONDS (25.2-36.5)
== END 2022-04-16 20:50 | disposition home or self-care (01) ==
LOC: JER 16:49
PROC: 3E0337Z Introduction of Electrolytic and Water Balance Substance into Peripheral Vein, Percutaneous Approach (ICD-10-PCS; principal; 2022-04-16)
DX: O26.851 Spotting complicating pregnancy, first trimester (principal); O23.11 Infections of bladder in pregnancy, first trimester; Z3A.01 Less than 8 weeks gestation of pregnancy
CPT/HCPCS: 36415; 76817-TC; 81003; 84702; 84703; 85025; 85610; 85730; 86850; 86900; 86901; 99284-25

== ENCOUNTER 2022-04-28 07:52 | Emergency (ER) | payer OTHER ==
[2022-04-28 08:03] VITALS: BP 107/55; PULSE 89; RESP 18; TEMP 98.2; BMI 20.5
[2022-04-28] MEDS ORDERED: ACETAMINOPHEN 500 MG TABLET (FP) PO ONE (08:28)
[2022-04-28] MEDS ORDERED: ACETAMINOPHEN 500 MG TABLET (FP) ONE (08:35)
[2022-04-28 09:11] LABS: BASO % 0.3 % (0-2.0); EOS % 0.9 % (0-4.5); HEMATOCRIT 38.8 % (32.4-45.2); HEMOGLOBIN 13.3 GM/dL (10.7-15.3); LYMPH % 22.8 % (8-40); MCHC 34.3 g/dl (32.0-36.0); MEAN CELL VOLUME 84.5 fl (80-96); MEAN PLT VOLUME 8.2 fl (7.5-11.1); MONO % 6.3 % (3.8-10.2); NEUT % 69.7 % (42.8-82.8); PLATELET COUNT 203 10^3/uL (134-434); RBC 4.59 M/mm3 (3.60-5.2); RDW 13.9 % (11.6-15.6); WHITE BLOOD COUNT 9.4 K/mm3 (4.0-10.0)
[2022-04-28 10:00] LABS: ALBUMIN 4.3 g/dl (3.4-5.0); BLOOD UREA NITROGEN 7.7 mg/dL (7-18); CALCIUM 9.2 mg/dL (8.5-10.1)
[2022-04-28 10:03] LABS: CREATININE 0.5 mg/dL (0.55-1.3)
[2022-04-28 10:05] LABS: BILIRUBIN,TOTAL 0.4 mg/dL (0.2-1); TOT PROT 8.2 g/dl (6.4-8.2)
== END 2022-04-28 11:10 | disposition home or self-care (01) ==
LOC: JER 07:52
DX: O20.0 Threatened abortion (principal)
CPT/HCPCS: 36415; 76801-TC; 80053; 84702; 85025; 86850; 86870; 86900; 86901; 99284-25

== ENCOUNTER 2022-04-30 09:20 | Emergency (ER) | payer OTHER ==
[2022-04-30 09:29] VITALS: BP 105/63; PULSE 78; RESP 18; TEMP 97.9; BMI 20.5
== END 2022-04-30 12:38 | disposition home or self-care (01) ==
LOC: JER 09:20
DX: O03.9 Complete or unspecified spontaneous abortion without complication (principal); N93.9 Abnormal uterine and vaginal bleeding, unspecified
CPT/HCPCS: 36415; 84702; 99283-25

== ENCOUNTER 2022-05-04 10:47 | Emergency (ER) | payer OTHER ==
[2022-05-04 11:03] VITALS: BMI 20.5
[2022-05-04] MEDS ORDERED: morphine CARPU-JECT 4 MG/1 ML DISP.SYRIN IVPUSH ONE (11:09)
[2022-05-04] MEDS ORDERED: ONDANSETRON 4 MG/2 ML VIAL IVPUSH ONE (11:10)
[2022-05-04] MEDS ORDERED: SODIUM CHLORIDE 0.9% 500 ML INFUS.BAG IV ONE (11:10)
[2022-05-04] MEDS ORDERED: ACETAMINOPHEN 1000 MG/100 ML BAG IVPB ONE (11:11)
[2022-05-04] MEDS ORDERED: ONDANSETRON 4 MG/2 ML VIAL ONE (11:16)
[2022-05-04] MEDS ORDERED: morphine SULFATE 4 MG/ML VIAL ONE (11:16)
[2022-05-04] MEDS ORDERED: ACETAMINOPHEN INJECTION 100 ML IVPB ONE (11:16)
[2022-05-04 11:42] LABS: BASO % 0.5 % (0-2.0); EOS % 1.6 % (0-4.5); HEMATOCRIT 36.1 % (32.4-45.2); HEMOGLOBIN 12.6 GM/dL (10.7-15.3); LYMPH % 31.3 % (8-40); MCH 29.6 pg (25.7-33.7); MCHC 34.9 g/dl (32.0-36.0); MEAN CELL VOLUME 84.8 fl (80-96); MEAN PLT VOLUME 8.2 fl (7.5-11.1); MONO % 5.7 % (3.8-10.2); NEUT % 60.9 % (42.8-82.8); PLATELET COUNT 242 10^3/uL (134-434); RBC 4.26 M/mm3 (3.60-5.2); RDW 13.8 % (11.6-15.6); WHITE BLOOD COUNT 6.5 K/mm3 (4.0-10.0)
[2022-05-04 11:49] LABS: INR 1.06 (0.83-1.09); PROTHROMBIN TIME (PATIENT) 12.3 SEC (9.7-13.0)
[2022-05-04 11:51] LABS: ACTIVATED PTT 29.6 SECONDS (25.2-36.5)
[2022-05-04] MEDS ORDERED: METHYLERGONOVINE MALEATE 0.2 MG/1 ML AMP IM ONE (11:52)
[2022-05-04 12:01] LABS: CALCIUM 9.2 mg/dL (8.5-10.1)
[2022-05-04 12:02] LABS: ALBUMIN 3.8 g/dl (3.4-5.0); BLOOD UREA NITROGEN 9.9 mg/dL (7-18)
[2022-05-04 12:05] LABS: CREATININE 0.5 mg/dL (0.55-1.3)
[2022-05-04 12:07] LABS: TOT PROT 7.3 g/dl (6.4-8.2)
[2022-05-04 12:08] LABS: BILIRUBIN,TOTAL 0.5 mg/dL (0.2-1)
[2022-05-04 17:10] VITALS: BP 120/79; PULSE 85; RESP 18; TEMP 98.1
== END 2022-05-04 17:31 | disposition home or self-care (01) ==
LOC: JER 10:47
PROC: 3E033GC Introduction of Other Therapeutic Substance into Peripheral Vein, Percutaneous Approach (ICD-10-PCS; principal; 2022-05-04)
PROC: 3E033GC Introduction of Other Therapeutic Substance into Peripheral Vein, Percutaneous Approach (ICD-10-PCS; 2022-05-04)
PROC: 3E033GC Introduction of Other Therapeutic Substance into Peripheral Vein, Percutaneous Approach (ICD-10-PCS; 2022-05-04)
PROC: 3E023GC Introduction of Other Therapeutic Substance into Muscle, Percutaneous Approach (ICD-10-PCS; 2022-05-04)
DX: O03.9 Complete or unspecified spontaneous abortion without complication (principal)
CPT/HCPCS: 36415; 76817-TC; 80053; 83605; 84484; 85025; 85610; 85730; 86850; 86900; 86901; 93005; 93010; 99285-25

== ENCOUNTER 2023-01-14 12:36 | Emergency (ER) | payer OTHER ==
[2023-01-14 12:44] VITALS: BP 126/84; PULSE 96; RESP 18; TEMP 98.3; BMI 21.9
[2023-01-14] MEDS ORDERED: ACETAMINOPHEN 500 MG TABLET (FP) PO ONE (12:57)
[2023-01-14] MEDS ORDERED: SODIUM CHLORIDE 0.9% 500 ML INFUS.BAG IV ONE (12:57)
[2023-01-14] MEDS ORDERED: METOCLOPRAMIDE HCL INJECTION 10 MG/2 ML VIAL IVPUSH ONE (12:58)
[2023-01-14] MEDS ORDERED: ACETAMINOPHEN 500 MG TABLET (FP) ONE (13:04)
[2023-01-14] MEDS ORDERED: METOCLOPRAMIDE HCL INJECTION 10 MG/2 ML VIAL ONE (13:04)
[2023-01-14 13:58] LABS: BASO % 0.4 % (0-2.0); EOS % 0.6 % (0-4.5); HEMOGLOBIN 13.8 GM/dL (10.7-15.3); LYMPH % 26.4 % (8-40); MCH 29.4 pg (25.7-33.7); MCHC 33.6 g/dl (32.0-36.0); MEAN CELL VOLUME 87.6 fl (80-96); MEAN PLT VOLUME 8.5 fl (7.5-11.1); MONO % 3.9 % (3.8-10.2); NEUT % 68.7 % (42.8-82.8); PLATELET COUNT 269 10^3/uL (134-434); RBC 4.68 M/mm3 (3.60-5.2); RDW 12.7 % (11.6-15.6); WHITE BLOOD COUNT 6.6 K/mm3 (4.0-10.0)
[2023-01-14 14:20] LABS: POTASSIUM 3.7 mmol/L (3.5-5.1)
[2023-01-14 14:22] LABS: CALCIUM 8.9 mg/dL (8.5-10.1)
[2023-01-14 14:23] LABS: ALBUMIN 4.2 g/dl (3.4-5.0); BLOOD UREA NITROGEN 11.1 mg/dL (7-18)
[2023-01-14 14:27] LABS: BILIRUBIN,TOTAL 0.2 mg/dL (0.2-1); TOT PROT 7.8 g/dl (6.4-8.2)
[2023-01-14 14:31] LABS: CREATININE 0.6 mg/dL (0.55-1.3)
[2023-01-14] MEDS ORDERED: KETOROLAC TROMETHAMINE 15 MG/ML VIAL IVPUSH ONE (14:40)
[2023-01-14] MEDS ORDERED: KETOROLAC TROMETHAMINE 15 MG/ML VIAL ONE (14:43)
== END 2023-01-14 14:53 | disposition home or self-care (01) ==
LOC: JER 12:36
PROC: 3E0333Z Introduction of Anti-inflammatory into Peripheral Vein, Percutaneous Approach (ICD-10-PCS; principal; 2023-01-14)
PROC: 3E033GC Introduction of Other Therapeutic Substance into Peripheral Vein, Percutaneous Approach (ICD-10-PCS; 2023-01-14)
DX: R51.9 Headache, unspecified (principal); M79.10 Myalgia, unspecified site; R68.83 Chills (without fever); R05.9 Cough, unspecified; B34.9 Viral infection, unspecified; Z20.822 Contact with and (suspected) exposure to COVID-19
CPT/HCPCS: 0241U-QW; 36415; 80053; 84703; 85025; 93005; 93010; 99284-25

== ENCOUNTER 2023-04-18 07:49 | Emergency (ER) | payer BC ==
[2023-04-18 08:07] VITALS: BP 112/60; PULSE 66; RESP 18; TEMP 98.5; BMI 22.6
[2023-04-18] MEDS ORDERED: ONDANSETRON 4 MG/2 ML VIAL ONE (08:42)
[2023-04-18] MEDS ORDERED: ACETAMINOPHEN INJECTION 100 ML IVPB ONE (08:42)
[2023-04-18] MEDS: ONDANSETRON 4 MG/2 ML VIAL IVPUSH ONE (09:08)
[2023-04-18] MEDS: ACETAMINOPHEN 1000 MG/100 ML BAG IVPB ONE (09:08)
[2023-04-18] MEDS: SODIUM CHLORIDE 0.9% 500 ML INFUS.BAG IV ONE (09:08)
[2023-04-18 09:14] LABS: BASO % 0.8 % (0-2.0); EOS % 1.7 % (0-4.5); HEMATOCRIT 41.3 % (32.4-45.2); HEMOGLOBIN 13.9 GM/dL (10.7-15.3); LYMPH % 32.9 % (8-40); MCH 29.3 pg (25.7-33.7); MCHC 33.6 g/dl (32.0-36.0); MEAN CELL VOLUME 87.1 fl (80-96); MEAN PLT VOLUME 8.1 fl (7.5-11.1); NEUT % 58.6 % (42.8-82.8); PLATELET COUNT 252 10^3/uL (134-434); RBC 4.74 M/mm3 (3.60-5.2); RDW 12.6 % (11.6-15.6); WHITE BLOOD COUNT 5.6 K/mm3 (4.0-10.0)
[2023-04-18 09:17] LABS: URINE APPEARANCE CLOUDY; URINE BILIRUBIN NEGATIVE (NEGATIVE); URINE COLOR YELLOW; URINE GLUCOSE (UA) NEGATIVE (NEGATIVE); URINE KETONE NEGATIVE (NEGATIVE); URINE LEUK ESTERASE NEGATIVE (NEGATIVE); URINE NITRITE NEGATIVE (NEGATIVE); URINE PROTEIN NEGATIVE (NEGATIVE); URINE UROBILINOGEN 0.2 mg/dL (0.2-1.0)
[2023-04-18 09:40] LABS: POTASSIUM 3.7 mmol/L (3.5-5.1)
[2023-04-18 09:43] LABS: CALCIUM 9.4 mg/dL (8.5-10.1)
[2023-04-18 09:44] LABS: BLOOD UREA NITROGEN 11.8 mg/dL (7-18)
[2023-04-18 09:47] LABS: CREATININE 0.6 mg/dL (0.55-1.3)
[2023-04-18 09:48] LABS: BILIRUBIN,TOTAL 0.5 mg/dL (0.2-1); TOT PROT 7.6 g/dl (6.4-8.2)
[2023-04-18] MEDS ORDERED: KETOROLAC TROMETHAMINE 15 MG/ML VIAL ONE (11:48)
[2023-04-18] MEDS: KETOROLAC TROMETHAMINE 15 MG/ML VIAL IVPUSH ONE (11:51)
== END 2023-04-18 12:57 | disposition home or self-care (01) ==
LOC: JER 07:49
PROC: 3E033NZ Introduction of Analgesics, Hypnotics, Sedatives into Peripheral Vein, Percutaneous Approach (ICD-10-PCS; principal; 2023-04-18)
PROC: 3E0333Z Introduction of Anti-inflammatory into Peripheral Vein, Percutaneous Approach (ICD-10-PCS; 2023-04-18)
PROC: 3E033GC Introduction of Other Therapeutic Substance into Peripheral Vein, Percutaneous Approach (ICD-10-PCS; 2023-04-18)
DX: K68.9 Other disorders of retroperitoneum (principal); R10.32 Left lower quadrant pain; R11.0 Nausea; R30.0 Dysuria
CPT/HCPCS: 36415; 74176-TC; 80053; 81003; 84703; 85025; 87086; 99284-25; J0131

== ENCOUNTER 2023-05-18 17:40 | Emergency (ER) | payer BC ==
[2023-05-18 17:57] VITALS: BP 103/63; PULSE 81; RESP 18; TEMP 98.2; BMI 22.6
[2023-05-18 19:01] LABS: EOS % 0.3 % (0-4.5); HEMATOCRIT 39.7 % (32.4-45.2); HEMOGLOBIN 13.1 GM/dL (10.7-15.3); LYMPH % 22.3 % (8-40); MCH 28.9 pg (25.7-33.7); MCHC 33.1 g/dl (32.0-36.0); MEAN CELL VOLUME 87.5 fl (80-96); MEAN PLT VOLUME 8.1 fl (7.5-11.1); MONO % 6.6 % (3.8-10.2); NEUT % 69.8 % (42.8-82.8); PLATELET COUNT 263 10^3/uL (134-434); RBC 4.54 M/mm3 (3.60-5.2); RDW 12.7 % (11.6-15.6); WHITE BLOOD COUNT 7.5 K/mm3 (4.0-10.0)
[2023-05-18 19:08] LABS: EPI CELLS 17 /uL (0-25.1); HYALINE CASTS 0 /uL (0-3.1); PH,URINE 6.5 (5.0-8.0); URINE APPEARANCE CLEAR; URINE BACTERIA 44 /uL (0-1359); URINE BILIRUBIN NEGATIVE (NEGATIVE); URINE COLOR YELLOW; URINE GLUCOSE (UA) NEGATIVE (NEGATIVE); URINE KETONE NEGATIVE (NEGATIVE); URINE LEUK ESTERASE NEGATIVE (NEGATIVE); URINE NITRITE NEGATIVE (NEGATIVE); URINE PROTEIN NEGATIVE (NEGATIVE); URINE RBC 18 /uL (0-23.9); URINE UROBILINOGEN 0.2 mg/dL (0.2-1.0); URINE WBC 3 /uL (0-25.8)
[2023-05-18 19:24] LABS: BLOOD UREA NITROGEN 11.9 mg/dL (7-18); CALCIUM 9.3 mg/dL (8.5-10.1)
[2023-05-18 19:25] LABS: ALBUMIN 4.1 g/dl (3.4-5.0)
[2023-05-18 19:27] LABS: CREATININE 0.6 mg/dL (0.55-1.3)
[2023-05-18 19:29] LABS: BILIRUBIN,TOTAL 0.4 mg/dL (0.2-1); TOT PROT 7.6 g/dl (6.4-8.2)
== END 2023-05-18 23:10 | disposition home or self-care (01) ==
LOC: JER 17:40
DX: O20.9 Hemorrhage in early pregnancy, unspecified (principal); Z3A.01 Less than 8 weeks gestation of pregnancy
CPT/HCPCS: 36415; 76817-TC; 80053; 81003; 84702; 85025; 86850; 86900; 86901; 87086; 99284-25

== ENCOUNTER 2023-06-23 15:35 | Emergency (ER) | payer BC ==
[2023-06-23 15:44] VITALS: BP 119/62; PULSE 86; RESP 18; TEMP 98.6; BMI 22.6
[2023-06-23 16:33] LABS: BASO % 0.5 % (0-2.0); EOS % 0.5 % (0-4.5); HEMATOCRIT 40.2 % (32.4-45.2); HEMOGLOBIN 13.8 GM/dL (10.7-15.3); LYMPH % 23.4 % (8-40); MCH 29.4 pg (25.7-33.7); MCHC 34.4 g/dl (32.0-36.0); MEAN CELL VOLUME 85.5 fl (80-96); MEAN PLT VOLUME 8.2 fl (7.5-11.1); MONO % 5.8 % (3.8-10.2); NEUT % 69.8 % (42.8-82.8); PH,URINE 6.5 (5.0-8.0); PLATELET COUNT 268 10^3/uL (134-434); RDW 12.6 % (11.6-15.6); URINE APPEARANCE CLEAR; URINE BILIRUBIN NEGATIVE (NEGATIVE); URINE COLOR YELLOW; URINE GLUCOSE (UA) NEGATIVE (NEGATIVE); URINE KETONE NEGATIVE (NEGATIVE); URINE LEUK ESTERASE NEGATIVE (NEGATIVE); URINE NITRITE NEGATIVE (NEGATIVE); URINE PROTEIN NEGATIVE (NEGATIVE); URINE UROBILINOGEN 0.2 mg/dL (0.2-1.0); WHITE BLOOD COUNT 7.8 K/mm3 (4.0-10.0)
[2023-06-23 16:55] LABS: POTASSIUM 3.2 mmol/L (3.5-5.1)
[2023-06-23 16:57] LABS: CALCIUM 9.5 mg/dL (8.5-10.1)
[2023-06-23 16:58] LABS: ALBUMIN 4.2 g/dl (3.4-5.0)
[2023-06-23 17:01] LABS: CREATININE 0.5 mg/dL (0.55-1.3)
[2023-06-23 17:02] LABS: BILIRUBIN,TOTAL 0.2 mg/dL (0.2-1); TOT PROT 8.4 g/dl (6.4-8.2)
== END 2023-06-23 20:38 | disposition home or self-care (01) ==
LOC: JER 15:35
DX: O36.4XX1 Maternal care for intrauterine death, fetus 1 (principal)
CPT/HCPCS: 36415; 76817-TC; 80053; 81003; 84702; 85025; 86850; 86900; 86901; 87086; 99284-25